=== PATIENT | male | born 1935 | race Caucasian/White ===

== ENCOUNTER 2017-12-25 09:21 | Inpatient (IN) | payer MEDICARE, BC ==
[2017-12-25 09:48] LABS: #Eosinphils 0.1 thou/uL (0.0-0.7); #Lymphocytes 1.8 thou/uL (1.20-3.40); #Monocytes 0.5 thou/uL (0.11-0.59); #Neutrophils 2.6 thou/uL (1.40-6.50); %Basophils 0.5 % (0.0-1.0); %Eosinophils 2.2 % (0.0-10.0); %Lymphocytes 36.1 % (21.0-51.0); %Monocytes 10.1 % (0.0-10.0); %Neutrophils 51.1 % (42.0-75.0); Hemoglobin 15.7 g/dL (14.0-18.0); Mean Corpuscular HGB CONC 33.1 g/dL (32.0-36.0); Mean Corpuscular Hemoglobin 30.3 pg (27.0-31.0); Mean Corpuscular Volume 91.6 fl (80.0-94.0); Mean Platelet Volume 6.8 fL (7.4-10.4); Platelet Count 252 thou/uL (130-400); RBC Distribution Width 12.3 % (11.5-14.5); Red Blood Cell (RBC) Count 5.17 mill/uL (4.70-6.10)
[2017-12-25 10:11] LABS: ALT (SGPT) 10 U/L (8-55); AST (SGOT) 17 U/L (5-34); Albumin 3.9 g/dL (3.4-4.8); Alkaline Phosphatase 81 U/L (40-150); Anion Gap 13 mmol/L (10-20); BUN (Urea Nitrogen) 12 mg/dL (8.4-25.7); Calc. Creatinine Clearance 0 mL/min (70-130); Calcium 9.2 mg/dL (7.8-10.44); Carbon Dioxide 23 mmol/L (23-31); Chloride 103 mmol/L (98-107); Estimated GFR-MDRD Greater than 90; Globulin 3.1 g/dL (2.4-3.5); Glucose 104 mg/dL (83-110); Magnesium 2.2 mg/dL (1.6-2.6); Sodium 135 mmol/L (136-145)
[2017-12-25 10:14] LABS: Troponin I Less than 0.010 ng/mL (< 0.028)
[2017-12-25 10:17] LABS: Bilirubin Negative (Negative); Blood, Urine Negative (Negative); Clarity CLEAR (Clear); Glucose, Urine (Dipstick) Negative (Negative); Leukocyte Negative (Negative); Nitrite Negative (Negative); Protein, Urine (Dipstick) Negative (Neg-Trace); Specific Gravity, Urine 1.008 (1.002-1.036); Urobilinogen 0.2 mg/dL (0.2-1.0); pH, Urine 7.5 (5.0-9.0)
--- NOTE | 2017-12-25 10:50 | RAD ---
SINGLE VIEW CHEST: HISTORY: Irregular heartbeat and syncope. FINDINGS: Single view of the chest show normal sized cardiomediastinal silhouette. There is no evidence of cons olidation, mass, or pleural effusion. Degenerative changes are seen in the spine. IMPRESSION: No evidence of acute cardiopulmonary disease. POS: [facility]
[2017-12-25] MEDS ORDERED: Mag-Al 1200 mg/1200 mg/30 ML UDCUP PO PRN (12:40)
[2017-12-25] MEDS ORDERED: Guaifenesin DM 100-10/5 ML UDCUP PO PRN (12:40)
[2017-12-25] MEDS ORDERED: Nitroglycerin 0.4 MG TAB (25 Tab Bottle) PO PRN (12:40)
[2017-12-25] MEDS ORDERED: Acetaminophen 325 MG TAB PO PRN (12:40)
[2017-12-25 12:42] VITALS: BMI 23.8
[2017-12-25 13:41] LABS: Troponin I Less than 0.010 ng/mL (< 0.028)
[2017-12-25] MEDS ORDERED: Diltiazem 125 MG in Sodium Chloride 0.9% 100 ML IVPB SCH (14:15)
[2017-12-25] MEDS ORDERED: Metoprolol Tartrate 50 MG TAB PO SCH ×2 (14:15→21:00)
[2017-12-25] MEDS: Sodium Chloride 0.9% 1,000 ML IV SCH (14:17)
--- NOTE | 2017-12-25 14:36 | HP ---
REASON FOR ADMISSION: Syncope and chest pain. HISTORY OF PRESENTING ILLNESS: The patient gives history of not feeling good when he woke up this morning. He had some mild epigastric discomfort and a funny feeling. Despite this, the patient got ready and was driving to work to come to [employer]. On the way, patient started to have the funny feeling again in his epigastric area which was radiating up to his chest and neck. He tried to drink a can of coke and ate a muffin along with coffee. This happened twice and patient finally pulled over to the side and rested for a few minutes. At work, patient apparently started shaking and passed out for 3 minutes or so. Co-workers called 911 and patient was brought to the emergency room. No obvious fever as such. No complaints of cough or expectoration. No complaints of urinary frequency or urgency. Has no wounds or ulcers anywhere. No prior cardiac workup. PAST MEDICAL AND SURGICAL HISTORY: History of rheumatic fever when he was 26 years old with no cardiac involvement per patient. He was hospitalized for 2 weeks and was on penicillin for 2 years, then. Dyslipidemia, benign prostatic hypertrophy, right hip surgery, right knee surgery, and tonsillectomy. CURRENT MEDICATIONS: Takes half a pill of cholesterol medicines and half a pill for benign prostatic hypertrophy. He does not recall the names of the same. His children will provide the same once they reach home and call us. ALLERGIES: No known drug allergies. PERSONAL HISTORY: Does not abuse alcohol or drugs. No history of smoking. He is active in life and still working. FAMILY HISTORY: Mother of CHF and its complications at the age of 66 years. Father of old age at the age of 79 years. REVIEW OF SYSTEMS: The following complete review of systems was negative, unless otherwise mentioned in the HPI or below: Constitutional: Weight loss or gain, ability to conduct usual activities. Skin: Rash, itching. Eyes: Double vision, pain. ENT/Mouth: Nose bleeding, neck stiffness, pain, tenderness. Cardiovascular: Palpitations, dyspnea on exertion, orthopnea. Respiratory: Shortness of breath, wheezing, cough, hemoptysis, fever or night sweats. Gastrointestinal: Poor appetite, abdominal pain, heartburn, nausea, vomiting, constipation, or diarrhea. Genitourinary: Urgency, frequency, dysuria, nocturia. Musculoskeletal: Pain, swelling. Neurologic/Psychiatric: Anxiety, depression. Allergy/Immunologic: Skin rash, bleeding tendency. PHYSICAL EXAMINATION: GENERAL: The patient is an 82-year-old male who is currently not in any acute distress. VITAL SIGNS: Blood pressure 150/86, pulse 70 per minute, respiratory rate 20 per minute, temperature 97.8 degrees Fahrenheit, and saturating 100% on room air. NECK: Supple, no elevated JVD. EYES: Extraocular muscles intact. Pupils reacting to light. ORAL CAVITY: Mucous membranes are dry. No exudates or congestion. CARDIOVASCULAR SYSTEM: S1, S2 heard. Regular rhythm. RESPIRATORY SYSTEM: Air entry 1+ bilaterally. No rales or rhonchi. ABDOMEN: Soft, bowel sounds heard. No tenderness, rigidity or guarding. EXTREMITIES: No peripheral edema or calf tenderness. VASCULAR SYSTEM: Peripheral pulses 1+ bilateral, no ischemic ulcerations or gangrene. CENTRAL NERVOUS SYSTEM: No gross focal deficits seen. Patient is alert, awake , oriented well. PSYCHIATRIC SYSTEM: The patient's mood is euthymic. No hallucinations or delusions. IMAGING DATA AND LABORATORY DATA: Initial EKG done at 9:25 a.m. shows sinus tachycardia at 108 beats per minute. There is also Q-waves seen in II, III, aVF. There are also nonspecific ST-T wave changes. He has had a repeat EKG done at 9:40 a.m. which shows normal sinus rhythm at 70 beats per minute. Chest x-ray done shows no cardiopulmonary abnormalities per my review. Hemoglobin and hematocrit 15 and 47, platelet count 252. White count of 5, MCV is 91 with 51% neutrophils, has high 10% monocytes on the differential. Electrolytes are stable. BUN 12, creatinine 0.8, glucose 104. Liver enzymes within normal limits. First set of cardiac enzymes are negative. Albumin is 3.9. UA is negative for any infection. CLINICAL IMPRESSION AND PLAN: The patient will be under observation on telemetry for what appears to be syncope, lasting for 3 minutes. He has also had atypical chest pain and also has had shaking chills with no fever as such. In view of this, the patient will be under observation on telemetry. We will closely monitor him on telemetry to rule out arrhythmias. Two more sets of cardiac enzymes. Please note the patient has had coffee along with his breakfast this morning and we will obtain a stress test in the morning. Echo with 2D Doppler in view of prior history of rheumatic fever when he was 26 years of age. He will be on aspirin and Pepcid for now. Orthostatic blood pressures will be obtained. Blood and urine cultures will be obtained as well. His initial UA is negative for any signs of infection. Code status was discussed with patient and he is a FULL CODE. His is currently hospitalized and is the power of regulatory attorney for him. COURTNEY
[2017-12-25 16:32] LABS: Troponin I 0.012 ng/mL (< 0.028)
[2017-12-25] MEDS: Enoxaparin Sodium 80 MG/0.8 ML SYRINGE SC SCH (20:06)
[2017-12-25] MEDS: Famotidine 20 MG TAB PO SCH (20:06)
--- NOTE | 2017-12-25 20:43 | CON ---
DATE OF CONSULTATION: 12/25/2017 ELECTROPHYSIOLOGY CONSULTATION REPORT REFERRING PHYSICIAN: Loreta Villalpando M.D. I am seeing Mr. Malik at our [facility] telemetry floor as an electrophysiology home performance consultant for the following problems: 1. Recurrent syncopal spells. 2. Newly found paroxysmal atrial flutter, possibly typical isthmus-dependent morphology with rapid rates. 3. Remote history of rheumatic fever as a child. 4. History of hypercholesterolemia, on medication. 5. History of BPH. ALLERGIES: None. MEDICATIONS AT HOME: Included cholesterol medication and BPH medication. As per H&P, which is simvastatin 20 mg daily and finasteride/Proscar 5 mg a day. SUBJECTIVE: Mr. Malik was presented in the ER with recurrent syncopal/near syncopal spells, first episode occurred while he was driving to work at [employer] and initially had felt unusual feeling from his epigastric area was radiating up to his chest and neck and he actually had to chute puller and drank some coffee and Coke, then at work in the office, he actually passed out for 3 minutes or so. Coworkers called 911. He was somewhat confused afterwards, but there is no residual neurological deficits are documented. He denies chest pains. He does not feel palpitations with these episodes. He has had a dizzy spell 2 weeks ago, but that was milder and passed quickly. He never completely passed out prior to this. No stroke-like symptoms, no neurological deficits, no fever, chills, cough, and rest of 12 point system otherwise unremarkable. HOSPITAL COURSE: He has been admitted to monitor in telemetry. A stress test was ordered. While getting ready for stress test, his heart rate becomes very rapid and telemetry was demonstrating a possible 2:1 typical atrial flutter. He received diltiazem by the time the EKG arrived, he was back in sinus rhythm. This episode lasted about 15 minutes or so. Even these episodes did not feel palpitations. PAST MEDICAL HISTORY: No prior heart disease or heart attacks or arrhythmias are documented, no history of CHF. SOCIAL HISTORY: He denies smoking, ETOH or drug abuse. He has a history of BPH, right hip surgery, right knee surgery and tonsillectomy. OBJECTIVE: VITAL SIGNS: Blood pressure is 133/69, heart rate 58, respiration is 18, temperature 97.9 degrees Fahrenheit. GENERAL: He is alert and oriented man in no apparent distress. NECK: Supple. Jugular veins not distended. CHEST: Coarse without crackles. CARDIOVASCULAR: Heart sounds are regular to rate and rhythm. No murmur or gallop. ABDOMEN: Benign. Bowel sounds positive. EXTREMITIES: Lower extremity without edema, clubbing or cyanosis. Pulses are adequate. NEUROLOGIC: Patient nonfocal. MUSCULOSKELETAL: No joint swelling or deformities. SKIN: Without rash. DATABASE: The EKGs were reviewed revealing initially from the ambulance crew sinus rhythm with premature extra beats, also some sinus tachycardia documented. Subsequent EKGs in the hospital reveals sinus rhythm, rate of 70 beats per minute, occasional PACs are seen, narrow QRS, QTC is 444 milliseconds. Nonspecific PAT runs are also seen. The third EKG telemetry strips though does demonstrate rapid SVT, which seems to be possibly atrial flutter with rapid rates. Atrial flutter waves are seen. Some subsequent EKGs. LABORATORY DATA: White count is 5, hemoglobin is 15.7, platelet count is 252. Sodium 135, potassium 4, BUN is 12, creatinine is 0.8, troponin less than 0.01. ASSESSMENT AND PLAN: Mr. Malik is a pleasant 82-year-old man with prior history of a remote rheumatic fever as a young man. He was treated with penicillin. Also hyperlipidemia, hypertension who presented with a new onset of syncopal spell. While on telemetry monitoring, he manifested with sustained but eventually self-terminated run of atrial flutter with rapid ventricular rates. He also has frequent PACs and nonsustained atrial tachycardia runs. We discussed these findings. Clearly, the rapid rates with atrial flutter could contribute to his syncopal spell, but not the only possible contributor. He currently appears stable. Standard evaluation with 2D echo would be very reasonable to proceed. He has been ordered to have a stress test done by Dr. Villalpando, but that was canceled even though he did receive his isotope injection. We discussed the mechanism of atrial flutter with him. He understands the potential option for medical management versus ablation procedure. He is being towards ablations to be done. Hence, he is back in sinus rhythm. At this point , would continue anticoagulation, but not would be necessary. I would like to obtain a reading of his echocardiogram for cardiac structures. In fact, Dr. Mathis was consulted who will do further cardiac evaluation. We discussed the ablation procedure. The risks and benefits were clearly detailed, understands the chance of infection, bleeding, stroke, tamponade recurrence. He is willing to proceed. We will try to schedule him at the nearest available time. COURTNEY
--- NOTE | 2017-12-25 23:46 | CON ---
DATE OF CONSULTATION: 12/25/2017 HISTORY OF PRESENT ILLNESS: Humberto Malik is a pleasant 82-year-old white male with no specific previous cardiac problems except history of rheumatic fever at age 26, which he states there was no cardiac involvement. He did have an episode last summer after working in the heat, where he felt extremely weak and hosed himself down with a water hose outside and he felt that was probably related to the heat. Then, today when he was driving to work at [employer], he started to have some epigastric burning that then spread up into his chest and seemed to go to his head and he became very weak. He had a second such episode when he was driving and pulled over. He then was sitting at his desk and apparently started to shake. He states that his vision went black and apparently some coworkers helped him. It does not sound as if he ever fell completely to the ground with a complete syncopal episode. He stated that he had the same type of warm feeling in his epigastric area radiating to his chest when he had that. Since he has been here in the hospital, he was found to have paroxysmal atrial flutter and whenever he would have that, he would have the same feeling of epigastric burning. He denied any true chest discomfort, shortness of breath and also denied any palpitations. PAST MEDICAL HISTORY: No history of hypertension or diabetes. He does have hypercholesterolemia and takes low dose statin. He has history of rheumatic fever at age [age] years old. He has benign prostatic hypertrophy. OPERATIONS: Right hip surgery, right knee surgery, tonsillectomy. MEDICATIONS: Simvastatin 20 one half tablet q.p.m., Proscar 5 mg 1/2 daily. ALLERGIES: None. SOCIAL HISTORY: He does not smoke. He may have a couple of beers after cutting the lawn, but does not drink every day. FAMILY HISTORY: Negative for coronary artery disease. REVIEW OF SYSTEMS: Twelve-point review of systems is otherwise unremarkable. PHYSICAL EXAMINATION: VITAL SIGNS: Blood pressure 133/69, pulse 58. HEENT: PERRL. NECK: Supple. LUNGS: Chest is clear. CARDIAC: S1 and S2 are normal, without any S3, S4 or murmurs. Carotid upstrokes normal, without bruits. ABDOMEN: Normal bowel sounds, without tenderness, organomegaly. EXTREMITIES: Revealed no clubbing, cyanosis or edema. NEUROLOGIC: Grossly intact. SKIN: Warm and dry. LABORATORY FINDINGS: EKG reveals normal sinus rhythm and on some EKGs, he has frequent PACs. On the monitor, he has episodes of atrial flutter, rate of approximately 150 per minute. Cardiac enzymes x3 are unremarkable. Hemoglobin 15.7, hematocrit 47.4, white count 5000, platelets 252,000. Sodium 135, potassium 4.0, chloride 103, carbon dioxide 12, BUN 0.8. IMPRESSION: 1. Near syncope. This probably is related to his atrial flutter and certainly could be related to a long pause whenever he converts back to sinus rhythm. 2. History of rheumatic fever at age 26 without specific cardiac involvement, according to the patient. However, in discussing with him, he has never had an echocardiogram. 3. Hypercholesterolemia. 4. Benign prostatic hypertrophy. PLAN: The patient will continue to be monitored. Electrophysiology has been consulted and certainly his best course would be radiofrequency ablation. He also may require pacemaker placement if he has prolonged sinus node recovery time. Echocardiogram will be performed with his history of rheumatic fever. COURTNEY
[2017-12-26 05:01] LABS: #Eosinphils 0.2 thou/uL (0.0-0.7); #Lymphocytes 2.2 thou/uL (1.20-3.40); #Monocytes 0.5 thou/uL (0.11-0.59); %Basophils 0.5 % (0.0-1.0); %Eosinophils 2.9 % (0.0-10.0); %Lymphocytes 37.3 % (21.0-51.0); %Monocytes 8.1 % (0.0-10.0); %Neutrophils 51.3 % (42.0-75.0); Hemoglobin 14.3 g/dL (14.0-18.0); Mean Corpuscular HGB CONC 33.6 g/dL (32.0-36.0); Mean Corpuscular Hemoglobin 30.5 pg (27.0-31.0); Mean Corpuscular Volume 90.9 fl (80.0-94.0); Mean Platelet Volume 6.9 fL (7.4-10.4); Platelet Count 206 thou/uL (130-400); RBC Distribution Width 12.3 % (11.5-14.5); White Blood Cell (WBC) Count 5.8 thou/uL (4.8-10.8)
[2017-12-26 05:19] LABS: Anion Gap 11 mmol/L (10-20); BUN (Urea Nitrogen) 11 mg/dL (8.4-25.7); Calc. Creatinine Clearance 92 mL/min (70-130); Calcium 8.6 mg/dL (7.8-10.44); Carbon Dioxide 23 mmol/L (23-31); Cardiac Risk 4.1 (Less than 4.5); Chloride 107 mmol/L (98-107); Cholesterol 148 mg/dl (< 200 Desired); Estimated GFR-MDRD Greater than 90; Glucose 83 mg/dL (83-110); HDL Cholesterol 36 mg/dL (>60 Neg Risk); LDL Cholesterol, Calculated 91 mg/dL; Potassium 3.9 mmol/L (3.5-5.1); Sodium 137 mmol/L (136-145); Triglycerides 107 mg/dL (Less than 150)
[2017-12-26] MEDS: Sodium Chloride 0.9% 1,000 ML IV SCH ×2 (09:00→11:07)
[2017-12-26] MEDS ORDERED: Enoxaparin Sodium 40 MG/0.4 ML SYRINGE SC SCH (09:00)
[2017-12-26] MEDS: Enoxaparin Sodium 80 MG/0.8 ML SYRINGE SC SCH (09:01)
[2017-12-26] MEDS: Famotidine 20 MG TAB PO SCH ×3 (09:01→20:27)
[2017-12-26] MEDS: Aspirin 325 MG TAB PO SCH ×2 (09:01→14:43)
--- NOTE | 2017-12-26 10:38 | PDOC.PN ---
- Subjective Encounter Start Date: 12/26/17 Encounter Start Time: 08:40 Subjective: no chest pain or palp -: is npo for EP studies -: had echo done - Objective MAR Reviewed: Yes Vital Signs & Weight: Vital Signs (12 hours) Temp Pulse Resp BP BP Pulse Ox 12/26/17 08:59 97.6 F 55 L 16 156/78 H 98 12/26/17 03:51 97.9 F 55 L 15 146/74 H 97 12/26/17 00:00 97.6 F 54 L 14 127/66 97 Weight Weight 171 lb I&O: 12/25/17 12/26/17 12/27/17 06:59 06:59 06:59 Intake Total 766 Output Total 300 1500 Balance -300 -734 Result Diagrams: 12/26/17 04:04 12/26/17 04:04 Phys Exam - Physical Examination HEENT: PERRLA, moist MMs Neck: no JVD, supple Respiratory: no wheezing, no rales Cardiovascular: RRR, no significant murmur Gastrointestinal: soft, non-tender, positive bowel sounds Musculoskeletal: no edema, pulses present Neurological: non-focal, moves all 4 limbs Psychiatric: normal affect, A&O x 3 Dx/Plan (1) Atrial flutter Code(s): I48.92 - UNSPECIFIED ATRIAL FLUTTER Status: Acute (2) Syncope Code(s): R55 - SYNCOPE AND COLLAPSE Status: Acute (3) Dyslipidemia Code(s): E78.5 - HYPERLIPIDEMIA, UNSPECIFIED Status: Chronic (4) BPH (benign prostatic hyperplasia) Code(s): N40.0 - BENIGN PROSTATIC HYPERPLASIA WITHOUT LOWER URINRY TRACT SYMP Status: Chronic Qualifiers: Lower urinary tract symptom presence: symptoms absent Qualified Code(s): N40.0 - Benign prostatic hyperplasia without lower urinary tract symptoms - Plan hemostable -: echo showed normal ef, no major valve involvement with prior h/o Rh fever -: for EP studies today -: on lovenox full dose, likely noac in am x 30 days * . Review of Systems - Medications/Allergies Allergies/Adverse Reactions: Allergies Allergy/AdvReac Type Severity Reaction Status Date / Time No Known Allergies Allergy Unverified 12/25/17 12:43 Medications: Current Medications Acetaminophen (Tylenol) 650 mg PO Q4H PRN PRN Reason: Headache/Fever or Pain Al Hydroxide/Mg Hydroxide (Maalox) 30 ml PO Q6H PRN PRN Reason: Heartburn or Indigestion Aspirin (Aspirin) 325 mg PO DAILY [facility] Last Admin: 12/26/17 09:01 Dose: Not Given Enoxaparin Sodium (Lovenox) 80 mg SC 0900,2100 [facility] Last Admin: 12/26/17 09:01 Dose: Not Given Famotidine (Pepcid) 20 mg PO BID [facility] Last Admin: 12/26/17 09:01 Dose: Not Given Guaifenesin/Dextromethorphan (Robitussin Dm) 15 ml PO Q4H PRN PRN Reason: Cough Sodium Chloride (Normal Saline 0.9%) 1,000 mls @ 50 mls/hr IV .Q20H [facility] Last Admin: 12/26/17 09:00 Dose: Not Given Nitroglycerin (Nitrostat) 0.4 mg PO Q5MIN PRN PRN Reason: Chest Pain Sodium Chloride (Flush - Normal Saline) 10 ml IVF Q12HR [facility] Last Admin: 12/26/17 09:03 Dose: Not Given Sodium Chloride (Flush - Normal Saline) 10 ml IVF PRN PRN PRN Reason: Saline Flush
[2017-12-26] MEDS ORDERED: Diltiazem HCl 125 MG, Admixture Fee 1 EACH in Sodium Chloride 0.9% 100 ML IVPB SCH (16:00)
[2017-12-26] MEDS ORDERED: Lorazepam 2 MG/ML VIAL ONE (16:04)
[2017-12-26] MEDS ORDERED: Metoprolol Tartrate 5 MG/5 ML VIAL ONE ×2 (16:14→16:17)
[2017-12-26] MEDS ORDERED: Enoxaparin Sodium 80 MG/0.8 ML SYRINGE SC SCH (21:00)
[2017-12-27] MEDS: Sodium Chloride 0.9% 1,000 ML IV SCH ×2 (04:17→14:25)
[2017-12-27] MEDS: Famotidine 20 MG TAB PO SCH ×2 (09:11→20:16)
[2017-12-27 09:28] LABS: Anion Gap 7 mmol/L (10-20); BUN (Urea Nitrogen) 9 mg/dL (8.4-25.7); Calc. Creatinine Clearance 90 mL/min (70-130); Calcium 8.4 mg/dL (7.8-10.44); Carbon Dioxide 27 mmol/L (23-31); Chloride 107 mmol/L (98-107); Estimated GFR-MDRD Greater than 90; Glucose 86 mg/dL (83-110); Potassium 3.9 mmol/L (3.5-5.1); Sodium 137 mmol/L (136-145)
[2017-12-27 10:04] LABS: Thyroid Stimulating Hormone 2.4297 uIU/mL (0.35-4.94)
[2017-12-27] MEDS ORDERED: PROPOFOL 200 MG/20 ML VIAL ONE (10:35)
[2017-12-27] MEDS ORDERED: PHENYLEPHRINE-NS 100 MCG/ML 10 ML SYRINGE ONE (10:35)
[2017-12-27 10:45] LABS: Free T4 (Free Thyroxine) 0.88 ng/dL (0.70-1.48)
[2017-12-27] MEDS ORDERED: Fentanyl 100 MCG/2 ML VIAL ONE (12:45)
[2017-12-27] MEDS ORDERED: Midazolam HCl 2 mg/2 ml Vial ONE (12:45)
[2017-12-27] MEDS: Aspirin 325 MG TAB PO SCH (14:21)
--- NOTE | 2017-12-27 15:10 | PDOC.PN ---
- Subjective Encounter Start Date: 12/27/17 Encounter Start Time: 08:40 Subjective: no chest pain or palp -: is npo for EP studies - Objective MAR Reviewed: Yes Vital Signs & Weight: Vital Signs (12 hours) Temp Pulse Resp BP BP Pulse Ox 12/27/17 11:30 93 L 12/27/17 11:28 52 L 20 142/71 H 98 12/27/17 07:12 97.6 F 50 L 18 146/69 H 98 12/27/17 03:56 98.1 F 53 L 18 110/59 L 96 Weight Weight 173 lb 8 oz I&O: 12/26/17 12/27/17 12/28/17 06:59 06:59 06:59 Intake Total 2953 Output Total 300 2700 Balance -300 253 Result Diagrams: 12/26/17 04:04 12/27/17 08:41 Additional Labs: Accuchecks 12/26/17 15:48 POC Glucose 122 H Phys Exam - Physical Examination HEENT: PERRLA, moist MMs Neck: no JVD, supple Respiratory: no wheezing, no rales Cardiovascular: RRR, no significant murmur Gastrointestinal: soft, non-tender, positive bowel sounds Musculoskeletal: no edema, pulses present Neurological: non-focal, moves all 4 limbs Psychiatric: normal affect, A&O x 3 Dx/Plan (1) Atrial flutter Code(s): I48.92 - UNSPECIFIED ATRIAL FLUTTER Status: Acute (2) Syncope Code(s): R55 - SYNCOPE AND COLLAPSE Status: Resolved (3) Dyslipidemia Code(s): E78.5 - HYPERLIPIDEMIA, UNSPECIFIED Status: Chronic (4) BPH (benign prostatic hyperplasia) Code(s): N40.0 - BENIGN PROSTATIC HYPERPLASIA WITHOUT LOWER URINRY TRACT SYMP Status: Chronic Qualifiers: Lower urinary tract symptom presence: symptoms absent Qualified Code(s): N40.0 - Benign prostatic hyperplasia without lower urinary tract symptoms - Plan for ep studies today -: has afib with rvr yesterday afternoon, recieved 5+5 mg lopressor iv then ca -: -rdizen 7.5mg/hr drip. 1 1/2 into this he became bradycardic with hr dippin -: -g into 40's and the drip was discontinued -: await ep studies, aspirin. Outpt stress test * . Review of Systems - Medications/Allergies Allergies/Adverse Reactions: Allergies Allergy/AdvReac Type Severity Reaction Status Date / Time No Known Allergies Allergy Unverified 12/25/17 12:43 Medications: Current Medications Acetaminophen (Tylenol) 650 mg PO Q4H PRN PRN Reason: Headache/Fever or Pain Al Hydroxide/Mg Hydroxide (Maalox) 30 ml PO Q6H PRN PRN Reason: Heartburn or Indigestion Aspirin (Aspirin) 325 mg PO DAILY [facility] Last Admin: 12/27/17 14:21 Dose: Not Given Famotidine (Pepcid) 20 mg PO BID [facility] Last Admin: 12/27/17 09:11 Dose: 20 mg Guaifenesin/Dextromethorphan (Robitussin Dm) 15 ml PO Q4H PRN PRN Reason: Cough Sodium Chloride (Normal Saline 0.9%) 1,000 mls @ 100 mls/hr IV .Q10H [facility] Last Admin: 12/27/17 14:25 Dose: 1,000 mls Diltiazem HCl 125 mg/Miscellaneous Medication 1 each/ Sodium Chloride 125 mls @ 0 mls/hr IVPB INF [facility]; As Directed PRN Reason: Protocol Last Admin: 12/26/17 16:14 Dose: 125 mls Nitroglycerin (Nitrostat) 0.4 mg PO Q5MIN PRN PRN Reason: Chest Pain Sodium Chloride (Flush - Normal Saline) 10 ml IVF Q12HR [facility] Last Admin: 12/27/17 09:11 Dose: 10 ml Sodium Chloride (Flush - Normal Saline) 10 ml IVF PRN PRN PRN Reason: Saline Flush
[2017-12-27] MEDS ORDERED: Heparin 10,000 UNITS/1 ML VIAL ONE (15:33)
[2017-12-27] MEDS ORDERED: Lidocaine 1% (PF) 30 ML VIAL ONE (15:34)
[2017-12-27] MEDS ORDERED: Propofol 500 MG/50 ML VIAL ONE ×2 (15:38→15:52)
[2017-12-27] MEDS ORDERED: Lidocaine 2% Jelly 5 ML TUBE ONE (15:51)
[2017-12-27] MEDS ORDERED: Isoproterenol 0.2 MG/1 ML AMP ONE (16:51)
[2017-12-27] MEDS ORDERED: PROPOFOL 20 ML ONE (17:37)
[2017-12-27] MEDS ORDERED: Promethazine HCl 25 MG/ML VIAL IM PRN (18:01)
[2017-12-27] MEDS ORDERED: Morphine Sulfate 2 MG/ML SYRINGE SLOW IVP PRN (18:01)
[2017-12-27] MEDS ORDERED: Promethazine HCl 25 MG/ML VIAL SLOW IVP PRN (18:01)
[2017-12-27] MEDS ORDERED: Meperidine HCl/PF 25 MG/ML VIAL SLOW IVP PRN (18:01)
[2017-12-27] MEDS ORDERED: HYDROmorphone 2 MG/ML VIAL SLOW IVP PRN (18:01)
[2017-12-27] MEDS ORDERED: Ondansetron HCl/PF 4 MG/2 ML Vial IVP PRN (18:01)
--- NOTE | 2017-12-27 18:53 | OP ---
DATE OF PROCEDURE: 12/27/2017 ELECTROPHYSIOLOGY STUDY REFERRING PHYSICIAN: Loreta Villalpando M.D. REASON FOR PROCEDURE: Mr. Malik presented with a variety of arrhythmias. He had EKG documentation of typical atrial flutter, but also a narrow complex SVTs were also documented which appeared to be p ossibly AV and oriented tachycardia. He also had periods of paroxysmal atrial tachyarrhythmia runs a lso on telemetry. He did pass out as a presenting symptom as well. Here for further evaluation. PROCEDURE IN DETAIL: The patient received deep sedation by Anesthesia specialist. After adequate se dation achieved, right femoral venous area was prepped, draped anesthetizing subcutaneous lidocaine a nd the right femoral vein was cannulated x2 with ultrasound guidance with a multipurpose needle. Two 8-Bulgarian short sheaths were introduced and through this a decapolar catheter was advanced to the RV, His bundle, right atrial and eventually to the CS area. Basic EP study was performed when we were a ble to induce both short nonsustained AV and oriented tachycardia as well as short bursts of typical atrial flutter, also atypical atrial flutter and nonsustained fibrillation also was seen during the s tudy. Baseline measurements: Sinus cycle length was 976 milliseconds. Frequent PACs were noted. NE 206, QRS 90 milliseconds, QT 408 milliseconds. AH 120, HV 48 milliseconds. The sinus node recovery time is 1344 milliseconds with a corrected sinus node recovery time is 368 milliseconds. AV Wenckebach cy leah length 360 milliseconds, RVWBB is 320 milliseconds with AV tadeo ERP of 600/280 at baseline with dual AV node physiology was clearly demonstrated in fact after jump AV tadeo reentrant tachycardia wa s induced, albeit not sustained. VA pacing is present concentric retrograde activation. Following this and the typical atrial flutter at baseline, we proceeded with a cavotricuspid isthmus ablation. The cavotricuspid isthmus was completely ablated with a prolonging the trans-isthmus time 150 milliseconds, which was longest adjacent to the ablation line and shorter by the right atrium sug gestive of complete directional block. Following that, isuprel was administered during which the AV block persisted and no further typical atrial flutter appearing arrhythmias induced. Nonsustained at rial fibrillation was still seen, but never required cardioversion. Also, with burst atrial pacing, we were able to induce a typical atrioventricular tadeo reentry tachy cardia which was induced with a right atrial pacing after an AV jump. This arrhythmia terminated tho ugh before further pacing maneuvers were obtained. Due to typical appearance proceeded with a slow p athway modification. Following the ablation of total of 13 lesions placed both in the cavotricuspid isthmus, the slow pathway area total with a total duration of 9 minutes 30 seconds whereas 40 alas w ere delivered at the isthmus area and 30 alas at the slow pathway area. During the slow pathway bur ns, junctional rhythm was noted. After the slow pathway modification, slow pathway conduction was further noted. The AV Wenckebach cy leah length was increased to 300 milliseconds and no AV access to my testing again did not demonstrate further AV jump. Isuprel reintroduced and burst atrial pacing did not induce any more sustained arrhythmia. CONCLUSION: 1. Successful induction of typical atrial flutter, status post cavotricuspid isthmus ablation. 2. Additional finding of a dual arteriovenous tadeo physiology as well as inducible arteriovenous no sam reentry tachycardia similar to also presenting rhythms with successful elimination of the inducib ility of both arrhythmias. 3. No change in cardiac silhouette noted throughout the study. The patient remained stable. No com plication noted. PLAN: Routine postoperative care. Consider diltiazem therapy for frequent PACs and PA-C runs if yoni tained atrial fibrillation seen with symptoms. Consider antiarrhythmic agents like Multaq versus sot alol, but also could be considered for pulmonary venous isolation procedure.
--- NOTE | 2017-12-27 19:00 | RAD ---
TWO VIEWS OF THE CHEST: 12/27/17 INDICATION: Status post ablation. COMPARISON: Prior chest radiograph dated 12/25/17. FINDINGS: Cardiomediastinal silhouette is normal. Lungs are clear. No pneumothorax is evident. Osseous structu res are unchanged. IMPRESSION: No acute cardiopulmonary abnormality. POS: [facility]
--- NOTE | 2017-12-27 21:30 | PRG ---
DATE OF SERVICE: 12/26/2017 ELECTROPHYSIOLOGY FOLLOWUP NOTE SUBJECTIVE: Mr. Malik seems to be doing well. He has occasional skipping beat sensation, but no bloom stained atrial fibrillation or flutter noted since yesterday. OBJECTIVE: VITAL SIGNS: Blood pressure is 132/74, heart rate 56, respiratory rate is 16, temperature 97.4 degre es Fahrenheit. GENERAL: Alert and oriented man, in no apparent distress. NECK: Supple without jugular venous distention. CHEST: Coarse without crackles. CARDIOVASCULAR: Heart sounds are regular to rate and rhythm. No murmur or gallop. ABDOMEN: Benign. Bowel sounds positive. EXTREMITIES: Lower extremities without edema, clubbing or cyanosis. DATABASE: The EKG reveals a sinus rhythm, occasional PAT runs. No sustained arrhythmias. ASSESSMENT AND PLAN: Mr. Malik is a pleasant 82-year-old man, who presented with a syncopal spell, also sustained atrial flutter, possibly typical isthmus-dependent morphology and PAT runs are also no lynette. He also had some ST-T appearing tachyarrhythmias as well. Our plan is to have him undergo an EP study and ablation likely tomorrow. In the meantime, diltiazem had to be used as needed for intermittent arrhythmia. Risks and benefits for the procedure were dis cussed with the patient. He is currently feeling well and ready for the procedure tomorrow.
[2017-12-28] MEDS: Sodium Chloride 0.9% 1,000 ML IV SCH (02:40)
[2017-12-28 05:18] LABS: Anion Gap 8 mmol/L (10-20); BUN (Urea Nitrogen) 8 mg/dL (8.4-25.7); Calc. Creatinine Clearance 95 mL/min (70-130); Calcium 8.3 mg/dL (7.8-10.44); Carbon Dioxide 26 mmol/L (23-31); Chloride 108 mmol/L (98-107); Estimated GFR-MDRD Greater than 90; Glucose 82 mg/dL (83-110); Potassium 3.7 mmol/L (3.5-5.1); Sodium 138 mmol/L (136-145)
[2017-12-28] MEDS: Famotidine 20 MG TAB PO SCH (08:57)
[2017-12-28] MEDS: Diltiazem HCl SR 60 mg Capsule PO SCH ×2 (08:58→14:49)
[2017-12-28] MEDS: Aspirin 325 MG TAB PO SCH (08:58)
--- NOTE | 2017-12-28 10:05 | PDOC.CTH ---
Cardiology Progress Note - Subjective Awake, feeling well, ready to go home. Denies chest pain, palpitations, shortness of breath. Ambulatory in room, about to work with PT. - Objective Vital Signs Temp Pulse Resp BP BP Pulse Ox 12/28/17 08:00 98.1 F 58 L 16 146/72 H 96 12/28/17 04:26 97.4 F L 59 L 16 134/66 94 L 12/27/17 23:42 98.3 F 66 16 138/67 96 Weight 174 lb 12/27/17 12/28/17 12/29/17 06:59 06:59 06:59 Intake Total 2953 2340 Output Total 2700 2675 Balance 253 -335 - Physical Examination General/Neuro: alert & oriented x3, NAD Neck: no JVD present Lungs: CTA, unlabored respirations Heart: RRR Abdomen: NT/ND - Telemetry Telemetry Rhythm: NSR, occ PACs - Labs Result Diagrams: 12/26/17 04:04 12/28/17 03:57 Troponin/CKMB CK-MB (CK-2) 2.0 ng/mL (0-6.6) 12/25/17 09:37 Troponin I 0.012 ng/mL (< 0.028) 12/25/17 15:48 - Assessment/Plan 1.Near Syncope/Syncope-likely 2/2 AFlutter. Echo showed EF 50%-55%, mod MR, mod AR, normal LV function. 2.Paroxysmal AFlutter-S/P RFA, maintaining SR, occ PACs, continue Diltiazem. CHADs VASC 3, home on eliquis 5mg BID, minimum 4 weeks. 3.HTN-stable 4.Hypercholesterolemia-cont statin F/U 1 month c/ , need to arrange outpt. PET scan
[2017-12-28 13:36] VITALS: BP 132/70; TEMP 97.7
--- NOTE | 2017-12-28 16:20 | PDOC.PN ---
- Subjective Encounter Start Date: 12/28/17 Encounter Start Time: 07:10 Subjective: feels better, no sob/chest pain or palp - Objective MAR Reviewed: Yes Vital Signs & Weight: Vital Signs (12 hours) Temp Pulse Resp BP BP Pulse Ox 12/28/17 12:44 97.7 F 62 16 132/70 95 12/28/17 08:00 98.1 F 58 L 16 146/72 H 95 12/28/17 04:26 97.4 F L 59 L 16 134/66 94 L Weight Weight 174 lb I&O: 12/27/17 12/28/17 12/29/17 06:59 06:59 06:59 Intake Total 2953 2340 Output Total 2700 2675 Balance 253 -335 Result Diagrams: 12/26/17 04:04 12/28/17 03:57 Phys Exam - Physical Examination HEENT: PERRLA, moist MMs Neck: no JVD, supple Respiratory: no wheezing, no rales Cardiovascular: RRR, no significant murmur Gastrointestinal: soft, non-tender, positive bowel sounds Musculoskeletal: no edema, pulses present Neurological: non-focal, moves all 4 limbs Psychiatric: normal affect, A&O x 3 Dx/Plan (1) Atrial flutter Code(s): I48.92 - UNSPECIFIED ATRIAL FLUTTER Status: Acute Comment: s/p cavotricuspid isthmus ablation 12/27/2017 (2) Syncope Code(s): R55 - SYNCOPE AND COLLAPSE Status: Resolved (3) Dyslipidemia Code(s): E78.5 - HYPERLIPIDEMIA, UNSPECIFIED Status: Chronic (4) BPH (benign prostatic hyperplasia) Code(s): N40.0 - BENIGN PROSTATIC HYPERPLASIA WITHOUT LOWER URINRY TRACT SYMP Status: Chronic Qualifiers: Lower urinary tract symptom presence: symptoms absent Qualified Code(s): N40.0 - Benign prostatic hyperplasia without lower urinary tract symptoms - Plan hemostable -: eliquis bid x 30 days -: is cleared by cardio for dc * .
[2017-12-28] MEDS ORDERED: Apixaban 5 MG TAB PO SCH (21:00)
--- NOTE | 2017-12-28 22:34 | DIS ---
DATE OF ADMISSION: 12/25/2017 DATE OF DISCHARGE: 12/28/2017 DISCHARGE DISPOSITION: To home. PRIMARY DISCHARGE DIAGNOSES: Syncope secondary to atrial flutter, status post cavotricuspid isthmus ablation. SECONDARY DISCHARGE DIAGNOSES: Benign prostatic hypertrophy, dyslipidemia. PROCEDURES DONE DURING HOSPITALIZATION: Echo with 2D Doppler done showed an EF of 50% to 55%. There is moderate mitral regurgitation, moderate aortic regurgitation. He has had a cavotricuspid isthmus ablation done with EP studies on 12/27/[address] Igor Adam. Blood cultures x2 no growth. Urine culture no growth. H&H 14 and 42, platelet count 206. White count of 5.8. Discharge BUN and creatinine is 8 and 0.6, free T3 is 3.0, free T4 is 0.8. TSH 2.42, HDL 36, LDL 91. Total cholesterol 148. Troponin x3 is negative. INPATIENT CONSULTS: Dr. Mathis for Cardiology and Dr. Igor Adam for Electrophysiology. DISCHARGE PLAN: Patient to follow up with Dr. Igor Adam in [address] Mathis's office will call him for cardiac PET scan and primary care physician in 1 week. BRIEF COURSE DURING HOSPITALIZATION: The patient initially was brought to emergency room after he passed out and had 2 more such episodes, for a total of 3 with shaking and passing out. The patient was scheduled for a stress test, but developed atrial flutter and had to be aborted. He has had consultation with Dr. Mathis for Cardiology and Dr. Igor Adam for Electrophysiology. He has had successful cavotricuspid isthmus ablation done for his atrial flutter. He is in sinus rhythm. The patient needs to continue Eliquis and Cardizem 60 mg twice daily sustained release. He needs to follow up with Dr. Igor Adam in two weeks. He will require a cardiac PET scan/stress test in Dr. Mathis's office, his office will call him for the appointment in the next 4-6 weeks. He has remained hemodynamically stable and will be shortly discharged home. He has been cleared by Dr. Coulter and Dr. Igor Adam for discharge. has been adviced to check pulse and BP twice daily and record to f/u with PCP. Please see a face to face documentation on [facility] for the day of discharge: DISCHARGE MEDICATIONS: Eliquis 5 mg twice daily, Cardizem sustained release 60 mg twice daily, Proscar 5 mg daily, and simvastatin 20 mg p.o. q.p.m. ALLERGIES: No known drug allergies. MTDD
== END 2017-12-28 14:35 | disposition home or self-care (01) | DRG 274 ==
LOC: ERS 09:21 → 2SW 10:50 → OBSVTOIN 14:33 → 2NO 17:52
PROVIDERS: ADMIT Internal Medicine; ATTEND Internal Medicine
PROC: 02583ZZ Destruction of Conduction Mechanism, Percutaneous Approach (ICD-10-PCS; principal; 2017-12-27)
PROC: 4A023FZ Measurement of Cardiac Rhythm, Percutaneous Approach (ICD-10-PCS; 2017-12-27)
PROC: 4A0234Z Measurement of Cardiac Electrical Activity, Percutaneous Approach (ICD-10-PCS; 2017-12-27)
DX: I48.3 Typical atrial flutter (principal); I08.0 Rheumatic disorders of both mitral and aortic valves; I10 Essential (primary) hypertension; E78.5 Hyperlipidemia, unspecified; N40.0 Benign prostatic hyperplasia without lower urinary tract symptoms; I48.91 Unspecified atrial fibrillation; I47.1 Supraventricular tachycardia
CPT/HCPCS: 36415; 36416; 71045; 76942; 80048; 80053; 80061; 81003; 82553; 83735; 84439; 84443; 84481; 84484; 85025; 87040; 87086; 93005; 93010; 93306; 93613; 93621; 93623; 93653; 93655; 94760; A4216; C1769; J1644; J1650; J2001; J2060; J2250; J2704; J3010; J7050

== ENCOUNTER 2022-08-28 12:21 | Observation (INO) | payer MEDICARE, BC ==
[2022-08-28 13:38] LABS: #Eosinphils 0.1 thou/uL (0.0-0.7); #Lymphocytes 1.9 thou/uL (1.20-3.40); #Monocytes 0.7 thou/uL (0.11-0.59); %Basophils 0.3 % (0.0-1.0); %Eosinophils 1.3 % (0.0-10.0); %Lymphocytes 27.8 % (21.0-51.0); %Neutrophils 59.6 % (42.0-75.0); Mean Corpuscular HGB CONC 33.3 g/dL (32.0-36.0); Mean Corpuscular Hemoglobin 30.4 pg (27.0-31.0); Mean Corpuscular Volume 91.1 fl (78.0-98.0); Platelet Count 225 10x3/uL (130-400); RBC Distribution Width 12.5 % (11.5-14.5); White Blood Cell (WBC) Count 6.7 10x3/uL (4.8-10.8)
[2022-08-28 14:00] LABS: ALT (SGPT) Less than 7 U/L (8-55); AST (SGOT) 13 U/L (5-34); Albumin 3.7 g/dL (3.4-4.8); Alkaline Phosphatase 85 U/L (40-110); Anion Gap 12 mmol/L (10-20); BUN (Urea Nitrogen) 18 mg/dL (8.4-25.7); Calc. Creatinine Clearance 0 mL/min (70-130); Calcium 8.6 mg/dL (7.8-10.44); Carbon Dioxide 26 mmol/L (23-31); Chloride 97 mmol/L (98-107); Estimated GFR 59; Globulin 2.8 g/dL (2.4-3.5); Glucose 73 mg/dL (83-110); Potassium 4.9 mmol/L (3.5-5.1); Protein, Total 6.5 g/dL (5.8-8.1); Sodium 130 mmol/L (136-145)
[2022-08-28] MEDS ORDERED: Aspirin Chewable 81 MG TAB ONE (14:23)
[2022-08-28] MEDS ORDERED: Acetaminophen 325 MG TAB PO PRN (15:11)
[2022-08-28] MEDS ORDERED: Ondansetron ODT 4 MG TAB PO PRN (15:11)
[2022-08-28] MEDS ORDERED: hydrALAZINE 20 MG/ML VIAL SLOW IVP PRN (15:11)
[2022-08-28] MEDS ORDERED: Ondansetron PF 4 MG/2 ML Vial IVP PRN (15:11)
[2022-08-28] MEDS ORDERED: Acetaminophen 650 MG Suppository PR PRN (15:11)
[2022-08-28 15:38] LABS: SARS-CoV-2 NAA Rapid Test DETECTED (NotDetected)
[2022-08-28 16:03] VITALS: BMI 24.9
[2022-08-28 19:41] VITALS: BP 120/89; TEMP 97.8
[2022-08-28] MEDS ORDERED: Atorvastatin Calcium 40 MG TAB PO SCH (21:00)
[2022-08-29 08:44] LABS: #Eosinphils 0.1 thou/uL (0.0-0.7); #Lymphocytes 1.1 thou/uL (1.20-3.40); #Monocytes 0.5 thou/uL (0.11-0.59); %Basophils 0.2 % (0.0-1.0); %Eosinophils 2.5 % (0.0-10.0); %Lymphocytes 23.5 % (21.0-51.0); %Monocytes 9.7 % (0.0-10.0); %Neutrophils 64.2 % (42.0-75.0); Hemoglobin 14.4 g/dL (14.0-18.0); Mean Corpuscular HGB CONC 32.6 g/dL (32.0-36.0); Mean Corpuscular Hemoglobin 29.8 pg (27.0-31.0); Mean Corpuscular Volume 91.4 fl (78.0-98.0); Mean Platelet Volume 6.7 fL (7.4-10.4); Platelet Count 208 10x3/uL (130-400); RBC Distribution Width 12.7 % (11.5-14.5); Red Blood Cell (RBC) Count 4.85 mill/uL (4.70-6.10); White Blood Cell (WBC) Count 4.7 10x3/uL (4.8-10.8)
[2022-08-29 08:49] LABS: Hemoglobin A1c 5.2 % (4.0-6.0)
[2022-08-29] MEDS ORDERED: Aspirin 81 mg Enteric Coated Tablet PO SCH (09:00)
[2022-08-29 09:06] LABS: Anion Gap 10 mmol/L (10-20); BUN (Urea Nitrogen) 11 mg/dL (8.4-25.7); Calc. Creatinine Clearance 70 mL/min (70-130); Calcium 8.7 mg/dL (7.8-10.44); Carbon Dioxide 27 mmol/L (23-31); Cardiac Risk 3.5 (Less than 4.5); Chloride 100 mmol/L (98-107); Cholesterol 121 mg/dl (< 200 Desired); Estimated GFR 84; Glucose 103 mg/dL (83-110); HDL Cholesterol 35 mg/dL (>60 Neg Risk); LDL Cholesterol, Calculated 70 mg/dL; Potassium 4.4 mmol/L (3.5-5.1); Sodium 133 mmol/L (136-145); Triglycerides 79 mg/dL (Less than 150)
[2022-08-29] MEDS ORDERED: Aspirin Chewable 81 MG TAB ONE (09:47)
[2022-08-30] MEDS ORDERED: Finasteride 5 MG TAB PO SCH (09:00)
== END 2022-08-29 13:48 | disposition home or self-care (01) ==
LOC: ERS 12:21 → ERHOLD 15:40
PROVIDERS: ADMIT Family Medicine; ATTEND Family Medicine
DX: G45.9 Transient cerebral ischemic attack, unspecified (principal); U07.1 COVID-19; E78.00 Pure hypercholesterolemia, unspecified; N40.0 Benign prostatic hyperplasia without lower urinary tract symptoms; E87.1 Hypo-osmolality and hyponatremia; I10 Essential (primary) hypertension; I48.92 Unspecified atrial flutter; Z79.899 Other long term (current) drug therapy
CPT/HCPCS: 70450; 70551; 80048; 80053; 80061; 83036; 84443; 85025 ×2; 93005; 99285; U0002; 36415; 96372; G0378; J1650

== ENCOUNTER 2025-03-18 11:09 | Emergency (ER) | payer MEDICARE ==
[2025-03-18 11:52] LABS: #Basophils 0.03 10x3/uL (0.0-0.2); #Eosinophils 0.06 10x3/uL (0.0-0.7); #Monocytes 0.56 10x3/uL (0.11-0.59); #Neutrophils 4.95 10x3/uL (1.40-6.50); %Basophils 0.4 % (0.0-1.0); %Eosinophils 0.9 % (0.0-10.0); %Lymphocytes 16.2 % (21.0-51.0); %Monocytes 8.3 % (0.0-10.0); %Neutrophils 73.9 % (42.0-75.0); Hematocrit 45.5 % (42.0-52.0); Hemoglobin 15.7 g/dL (14.0-18.0); Mean Corpuscular Hemoglobin 30.5 pg (27.0-31.0); Mean Corpuscular Volume 88.5 fL (78.0-98.0); Platelet Count 231 10x3/uL (130-400); Red Blood Cell (RBC) Count 5.14 mill/uL (4.70-6.10); White Blood Cell (WBC) Count 6.71 10x3/uL (4.8-10.8)
[2025-03-18 12:07] LABS: INR-International Normal Ratio 1.1; PTT 40.9 sec (22.9-36.1); Prothrombin Time 14.7 sec (12.0-14.7)
[2025-03-18 12:19] LABS: ALT (SGPT) 9 U/L (Less than 45); AST (SGOT) 20 U/L (11-34); Albumin 3.6 g/dL (3.1-4.5); Alkaline Phosphatase 101 U/L (40-110); Anion Gap 14 mmol/L (10-20); BUN (Urea Nitrogen) 11 mg/dL (8.4-25.7); Bilirubin, Total 1.3 mg/dL (0.3-1.2); Calc. Creatinine Clearance 0 mL/min (70-130); Calcium 8.4 mg/dL (7.8-10.44); Carbon Dioxide 22 mmol/L (23-31); Chloride 99 mmol/L (98-107); Globulin 3.5 g/dL (2.4-3.5); Glucose 125 mg/dL (83-110); Potassium 3.9 mmol/L (3.5-5.1); Sodium 131 mmol/L (136-145)
[2025-03-18 12:22] LABS: Troponin I 0.022 ng/mL (< 0.028)
== END 2025-03-18 15:05 | disposition home or self-care (01) ==
LOC: ERS 11:09
DX: R55 Syncope and collapse (principal); E87.1 Hypo-osmolality and hyponatremia; R29.700 NIHSS score 0; I48.91 Unspecified atrial fibrillation; Z55.6 Problems related to health literacy
CPT/HCPCS: 36415; 71045; 80053; 83880; 84484; 85025; 85610; 85730; 93005